=== PATIENT | female | born 1965 | race Caucasian/White ===

== ENCOUNTER 2021-12-12 09:33 | Day surgery (SDC) | payer OTHER ==
[~2021-12-12 09:33] MED LIST: Lactated Ringers 1,000 ML IV SCH; Lidocaine 1%/Sod Bicarbonate in NS 8.4% 1 ML Syringe IDERM PRN; Sodium Chloride 0.9% 10 ML Syringe FLUSH PRN; Sodium Chloride 0.9% 10 ML Syringe FLUSH SCH
[2021-12-12] MEDS ORDERED: Propofol 200 MG/20 ML SDV ONE (11:02)
[2021-12-12] MEDS ORDERED: Lidocaine 1% 6 ML ONE (11:03)
[2021-12-12] MEDS ORDERED: Midazolam 1 MG/ML 2 ML SDV ONE ×2 (11:06→11:07)
[2021-12-12] MEDS ORDERED: fentaNYL 100 MCG/2 ML SDV ONE (11:06)
[2021-12-12] MEDS ORDERED: Ondansetron 4 MG/2 ML SDV ONE (11:29)
[2021-12-12 13:15] VITALS: BP 124/84; PULSE 70
== END 2021-12-12 13:12 | disposition home or self-care (01) ==
LOC: JD.SDS 09:33
PROVIDERS: ATTEND Surgery
DX: D12.3 Benign neoplasm of transverse colon (principal); D12.6 Benign neoplasm of colon, unspecified; K21.00 Gastro-esophageal reflux disease with esophagitis, without bleeding; M81.0 Age-related osteoporosis without current pathological fracture; Z79.899 Other long term (current) drug therapy; Z90.49 Acquired absence of other specified parts of digestive tract; Z98.890 Other specified postprocedural states; Z87.891 Personal history of nicotine dependence
CPT/HCPCS: 43239; 45380; 45381; 45385; J2250; J2405; J2704; J3010; J7120; 00813

== ENCOUNTER 2021-12-26 07:30 | Inpatient (IN) | payer OTHER ==
[2021-12-26] MEDS ORDERED: Bupivacaine 0.5%/EPINEPHrine 1:200,000 50 ML MDV ONE (08:36)
[2021-12-26] MEDS ORDERED: Midazolam 1 MG/ML 2 ML SDV ONE (08:53)
[2021-12-26] MEDS ORDERED: fentaNYL 250 MCG/5 ML SDV ONE (08:54)
[2021-12-26] MEDS ORDERED: Propofol 200 MG/20 ML SDV ONE (08:54)
[2021-12-26] MEDS ORDERED: Rocuronium 50 MG/5 ML Vial ONE ×2 (08:57→09:55)
[2021-12-26] MEDS ORDERED: Lidocaine 1% 6 ML ONE (08:57)
[2021-12-26] MEDS ORDERED: Dexamethasone 4 MG/ML 5 ML MDV ONE ×2 (08:57→11:11)
[2021-12-26] MEDS ORDERED: Ondansetron 4 MG/2 ML SDV ONE (09:40)
[2021-12-26] MEDS ORDERED: Ropivacaine 0.5% 5 MG/ML 30 ML SDV ONE (09:49)
[2021-12-26] MEDS ORDERED: Heparin Sodium 5,000 Units/ML Vial ONE (10:00)
[2021-12-26] MEDS ORDERED: fentaNYL 100 MCG/2 ML SDV ONE (11:18)
[2021-12-26] MEDS ORDERED: HYDROmorphone 0.5 MG/0.5 ML Syringe ONE (11:19)
[2021-12-26] MEDS ORDERED: Sugammadex Sodium 200 MG/2 ML VIAL ONE (11:39)
[2021-12-26] MEDS ORDERED: Morphine 2 MG/ML SYRINGE IVPUSH PRN (12:55)
[2021-12-26] MEDS ORDERED: oxyCODONE 5 MG Tab PO PRN (12:55)
[2021-12-26] MEDS ORDERED: Ondansetron 4 MG in Sodium Chloride 0.9% 50 ML IV PRN (12:57)
[2021-12-26] MEDS ORDERED: Simethicone 80 MG Tab.Chew PO PRN (12:58)
[2021-12-26] MEDS ORDERED: Ondansetron 4 MG/2 ML SDV IVPUSH PRN ×2 (13:06→13:15)
[2021-12-26] MEDS ORDERED: fentaNYL 100 MCG/2 ML SDV IVPUSH PRN (13:06)
[2021-12-26] MEDS ORDERED: HYDROmorphone 0.5 MG/0.5 ML Syringe IVPUSH PRN (13:06)
[2021-12-26] MEDS: Lactated Ringers 1,000 ML IV SCH ×2 (13:55→22:32)
[2021-12-26] MEDS: Sodium Chloride 0.9% 10 ML Syringe FLUSH SCH (14:58)
[2021-12-26] MEDS: Acetaminophen 325 MG Tab PO SCH ×2 (15:38→22:24)
[2021-12-26] MEDS: Heparin Sodium 5,000 Units/ML Vial SUBCUT SCH ×2 (15:39→22:26)
[2021-12-27] MEDS: Acetaminophen 325 MG Tab PO SCH ×3 (06:17→21:54)
[2021-12-27] MEDS: Heparin Sodium 5,000 Units/ML Vial SUBCUT SCH ×3 (06:18→21:54)
[2021-12-27] MEDS: Pantoprazole 40 MG Tab.CR PO SCH (08:20)
[2021-12-28] MEDS: Acetaminophen 325 MG Tab PO SCH ×3 (05:58→22:11)
[2021-12-28] MEDS: Heparin Sodium 5,000 Units/ML Vial SUBCUT SCH ×3 (05:58→22:13)
[2021-12-28] MEDS: Pantoprazole 40 MG Tab.CR PO SCH (08:51)
[2021-12-29] MEDS: Acetaminophen 325 MG Tab PO SCH (05:55)
[2021-12-29] MEDS: Heparin Sodium 5,000 Units/ML Vial SUBCUT SCH (05:57)
[2021-12-29 09:54] VITALS: BP 125/87; PULSE 96
[2021-12-29] MEDS: Pantoprazole 40 MG Tab.CR PO SCH (10:59)
== END 2021-12-29 09:20 | disposition home or self-care (01) | DRG 331 ==
LOC: JD.MS 07:30 → JD.OB 12-27 21:03
PROVIDERS: ADMIT Surgery; ATTEND Surgery
PROC: 0DBL4ZZ Excision of Transverse Colon, Percutaneous Endoscopic Approach (ICD-10-PCS; principal; 2021-12-26)
PROC: 0DBM4ZZ Excision of Descending Colon, Percutaneous Endoscopic Approach (ICD-10-PCS; 2021-12-26)
DX: D12.3 Benign neoplasm of transverse colon (principal); M81.0 Age-related osteoporosis without current pathological fracture; K44.9 Diaphragmatic hernia without obstruction or gangrene; M19.90 Unspecified osteoarthritis, unspecified site; K21.9 Gastro-esophageal reflux disease without esophagitis; K57.30 Diverticulosis of large intestine without perforation or abscess without bleeding; K76.0 Fatty (change of) liver, not elsewhere classified; Z90.49 Acquired absence of other specified parts of digestive tract; Z79.899 Other long term (current) drug therapy
CPT/HCPCS: 00790; 36415; 64488; 80048; 85025; 94761; A9270-GY; J0694; J1100; J1170; J1644; J2250; J2370; J2405; J2704; J2795; J3010; J3490; J7120; U0002

== ENCOUNTER 2022-01-09 09:35 | Inpatient (IN) | payer OTHER ==
[2022-01-09] MEDS ORDERED: Sodium Chloride 0.9% 1,000 ML IV STA (10:08)
[2022-01-09] MEDS ORDERED: Sodium Chloride 0.9% 10 ML Syringe FLUSH PRN ×2 (10:08→10:54)
[2022-01-09] MEDS ORDERED: Iopamidol 612 MG/ML 100 ML Bottle IVPUSH ONE (10:54)
[2022-01-09] MEDS ORDERED: Diatrizoate Meglumine/Diatrizoate Sodium 37% 120 ML Bottle PO ONE (10:54)
[2022-01-09] MEDS ORDERED: Piperacillin/Tazobactam 4.5 GM in Sodium Chloride 0.9% 100 ML IV ONE (12:44)
[2022-01-09] MEDS: Lactated Ringers 1,000 ML IV SCH (13:59)
[2022-01-09] MEDS ORDERED: Ondansetron 4 MG/2 ML SDV IV PRN (17:49)
[2022-01-09] MEDS ORDERED: oxyCODONE 5 MG Tab PO PRN (17:49)
[2022-01-09] MEDS ORDERED: HYDROmorphone 0.5 MG/0.5 ML Syringe IVPUSH PRN (17:49)
[2022-01-09] MEDS ORDERED: Ondansetron 4 MG Tab.DIS PO PRN (17:49)
[2022-01-09] MEDS ORDERED: Acetaminophen 325 MG Tab PO PRN (17:49)
[2022-01-09] MEDS: Piperacillin/Tazobactam 4.5 GM in Sodium Chloride 0.9% 100 ML IV SCH (18:09)
[2022-01-10] MEDS: Piperacillin/Tazobactam 4.5 GM in Sodium Chloride 0.9% 100 ML IV SCH ×3 (03:19→18:11)
[2022-01-10] MEDS: Lactated Ringers 1,000 ML IV SCH (06:26)
[2022-01-10] MEDS ORDERED: Lactated Ringers 1,000 ML IV SCH ×2 (08:45→16:03)
[2022-01-10] MEDS: Enoxaparin 40 MG/0.4 ML Syringe SUBCUT SCH (09:21)
[2022-01-10] MEDS: Potassium Chloride 10 MEQ in Premix Bag 1 BAG IV SCH ×4 (13:40→21:52)
[2022-01-10] MEDS ORDERED: Potassium Chloride 10 MEQ in Premix Bag 1 BAG IV SCH (21:30)
[2022-01-11] MEDS: Piperacillin/Tazobactam 4.5 GM in Sodium Chloride 0.9% 100 ML IV SCH ×2 (02:52→09:55)
[2022-01-11] MEDS: Enoxaparin 40 MG/0.4 ML Syringe SUBCUT SCH (08:34)
[2022-01-11 12:33] VITALS: BP 132/81; PULSE 84
== END 2022-01-11 14:50 | disposition home or self-care (01) | DRG 392 ==
LOC: JD.ED 09:35 → JD.MS 12:52
PROVIDERS: ADMIT Surgery; ATTEND Surgery
DX: K52.9 Noninfective gastroenteritis and colitis, unspecified (principal); K62.89 Other specified diseases of anus and rectum; Z20.822 Contact with and (suspected) exposure to COVID-19; H54.7 Unspecified visual loss; K21.9 Gastro-esophageal reflux disease without esophagitis; M54.9 Dorsalgia, unspecified; G89.29 Other chronic pain; M81.0 Age-related osteoporosis without current pathological fracture; Z90.49 Acquired absence of other specified parts of digestive tract; Z87.891 Personal history of nicotine dependence
CPT/HCPCS: 36415; 74177; 74177-26; 80048; 80053; 81001; 83690; 85025; 86140; 96365; 99284; 99285-25; A9270-GY; J1650; J2543; J3480; J3490; J7030; J7120; Q9963; Q9967; U0002

== ENCOUNTER 2022-01-28 13:04 | Emergency (ER) | payer OTHER ==
[2022-01-28] MEDS ORDERED: Ondansetron 4 MG/2 ML SDV IVPUSH ONE (13:29)
[2022-01-28] MEDS ORDERED: Dextrose 5%-0.9% NaCl 1,000 ML IV SCH (13:30)
[2022-01-28] MEDS ORDERED: Diatrizoate Meglumine/Diatrizoate Sodium 37% 120 ML Bottle PO ONE (13:42)
[2022-01-28] MEDS ORDERED: Iopamidol 612 MG/ML 100 ML Bottle IVPUSH ONE (13:42)
[2022-01-28] MEDS: Sodium Chloride 0.9% 10 ML Syringe FLUSH PRN ×2 (14:20→15:20)
[2022-01-28 16:00] VITALS: BP 129/90; PULSE 82
== END 2022-01-28 16:58 | disposition home or self-care (01) ==
LOC: JD.ED 13:04
DX: K57.32 Diverticulitis of large intestine without perforation or abscess without bleeding (principal); R19.7 Diarrhea, unspecified
CPT/HCPCS: 36415; 74177; 80053; 81001; 83630; 83735; 85025; 85652; 86140; 87324; 87493; 96374; 99284; J2405; J3490; J7042; Q9963; Q9967

== ENCOUNTER 2023-06-16 07:07 | Day surgery (SDC) | payer OTHER ==
[2023-06-16] MEDS ORDERED: Propofol 200 MG/20 ML SDV ONE (07:36)
[2023-06-16] MEDS ORDERED: fentaNYL 100 MCG/2 ML SDV ONE (07:37)
[2023-06-16 08:58] VITALS: BP 116/88; PULSE 82
[2023-06-16] MEDS ORDERED: Sodium Chloride 0.9% 10 ML Syringe FLUSH PRN (11:07)
[2023-06-16] MEDS ORDERED: Lactated Ringers 1,000 ML IV SCH (11:15)
[2023-06-16] MEDS ORDERED: Sodium Chloride 0.9% 10 ML Syringe FLUSH SCH (21:00)
== END 2023-06-16 08:50 | disposition home or self-care (01) ==
LOC: JD.SDS 07:07
PROVIDERS: ATTEND Specialist
DX: G89.29 Other chronic pain (principal); M54.9 Dorsalgia, unspecified; K57.32 Diverticulitis of large intestine without perforation or abscess without bleeding; K21.9 Gastro-esophageal reflux disease without esophagitis; I10 Essential (primary) hypertension; E78.5 Hyperlipidemia, unspecified; Z87.891 Personal history of nicotine dependence; Z79.899 Other long term (current) drug therapy
CPT/HCPCS: G0121; J2704; J3010; J7120; 00811

== ENCOUNTER 2025-03-21 09:02 | Observation (INO) | payer OTHER ==
[~2025-03-21 09:02] MED LIST changes: +HYDROmorphone 0.5 MG/0.5 ML Syringe ONE; -Lactated Ringers 1,000 ML IV SCH; -Lidocaine 1%/Sod Bicarbonate in NS 8.4% 1 ML Syringe IDERM PRN; +Lidocaine 2% 5 ML SDV ONE; +Propofol 200 MG/20 ML SDV ONE; +Rocuronium 50 MG/5 ML Vial ONE; -Sodium Chloride 0.9% 10 ML Syringe FLUSH SCH
[2025-03-21] MEDS ORDERED: fentaNYL 250 MCG/5 ML SDV ONE (09:03)
[2025-03-21] MEDS ORDERED: Ondansetron 4 MG/2 ML SDV ONE (09:09)
[2025-03-21] MEDS ORDERED: Dexamethasone 4 MG/ML 5 ML MDV ONE (09:09)
[2025-03-21] MEDS: Lactated Ringers 1,000 ML IV SCH ×2 (09:10→21:54)
[2025-03-21] MEDS: Citric Acid/Sodium Citrate Solution 30 ML Cup PO ONE (09:44)
[2025-03-21] MEDS ORDERED: Famotidine 20 MG/2 ML SDV ONE (09:48)
[2025-03-21] MEDS: Famotidine 20 MG/2 ML SDV IVPUSH ONE (09:48)
[2025-03-21] MEDS: EPINEPHrine 1 MG/ML SDV ONE (10:55)
[2025-03-21] MEDS: Bupivacaine 0.5% 30 ML SDV ONE (10:55)
[2025-03-21] MEDS ORDERED: ceFAZolin 2 GM Vial ONE (11:07)
[2025-03-21] MEDS ORDERED: Phenylephrine 1% 10 MG/ML SDV ONE (11:07)
[2025-03-21] MEDS ORDERED: Rocuronium 50 MG/5 ML Vial ONE (11:08)
[2025-03-21] MEDS ORDERED: Lactated Ringers 1,000 ML ONE (11:22)
[2025-03-21] MEDS ORDERED: Sugammadex Sodium 200 MG/2 ML VIAL IV ONE (11:40)
[2025-03-21] MEDS ORDERED: oxyCODONE 5 MG Tab PO PRN (12:52)
[2025-03-21] MEDS ORDERED: HYDROmorphone 0.5 MG/0.5 ML Syringe IVPUSH PRN ×2 (12:52→13:39)
[2025-03-21] MEDS ORDERED: Benzocaine/Cetylpyridinium/Menthol Lozenge MUCMEM PRN (12:56)
[2025-03-21] MEDS ORDERED: fentaNYL 100 MCG/2 ML SDV IVPUSH PRN (13:39)
[2025-03-21] MEDS ORDERED: Ondansetron 4 MG/2 ML SDV IVPUSH PRN (13:39)
[2025-03-21] MEDS: Sodium Chloride 0.9% 10 ML Syringe FLUSH SCH (14:44)
[2025-03-21] MEDS: Ketorolac 30 MG/ML SDV IVPUSH ONE (15:58)
[2025-03-21] MEDS: Simethicone 80 MG Tab.Chew PO PRN (17:40)
[2025-03-21] MEDS: Ondansetron 4 MG/2 ML SDV IV PRN (17:40)
[2025-03-21] MEDS: Acetaminophen 325 MG Tab PO PRN (19:45)
[2025-03-21] MEDS: Promethazine 25 MG Tab PO PRN (19:45)
[2025-03-21] MEDS: Ondansetron 4 MG/2 ML SDV IVPUSH ONE (20:11)
[2025-03-21] MEDS ORDERED: diphenhydrAMINE 50 MG/ML SDV IVPUSH PRN (21:00)
[2025-03-22 04:09] LABS: BASOPHILS PERCENT AUTO 0.1 % (0.0-1.0); EOSINOPHILS PERCENT AUTO 0.1 % (0.0-6.0); HEMOGLOBIN 14.2 gm/dl (12.0-16.0); IMMATURE GRAN ABSOLUTE AUTO 0.04 K/mm3 (0.00-0.05); IMMATURE GRAN PERCENT AUTO 0.3 % (0.0-0.4); LYMPHOCYTES ABSOLUTE AUTO 0.8 K/mm3 (1.0-4.8); LYMPHOCYTES PERCENT AUTO 7.2 % (24.0-44.0); MEAN CORPUSCULAR HEMOGLOBIN 29.1 pg (28.0-32.0); MEAN CORPUSCULAR HGB CONC 33.8 g/dl (32.0-36.0); MEAN CORPUSCULAR VOLUME 86.1 fl (83.0-99.0); MEAN PLATELET VOLUME 9.6 fl (9.4-12.3); MONOCYTES ABSOLUTE AUTO 0.8 K/mm3 (0.0-0.8); MONOCYTES PERCENT AUTO 6.9 % (0.0-8.0); NEUTROPHILS PERCENT AUTO 85.4 % (41.0-71.0); PLATELET COUNT,PLT 264 K/mm3 (150-400); RED BLOOD CELL COUNT 4.88 M/mm3 (4.10-5.30); WHITE BLOOD CELL COUNT,WBC 11.67 K/mm3 (3.9-11.3)
[2025-03-22 04:23] LABS: BUN/CREATININE RATIO 13.8 (14-18); CALCIUM 8.7 mg/dL (8.5-10.1); CREATININE 0.8 mg/dL (0.55-1.02); EST CRCL DRUG DOSING (CG) 58.41 mL/min
[2025-03-22] MEDS: Calcium Carbonate 500 MG Tab.Chew PO PRN (08:10)
[2025-03-22 08:48] VITALS: BP 146/92
[2025-03-22] MEDS: Ondansetron 4 MG/2 ML SDV IVPUSH PRN (08:55)
[2025-03-22 10:53] VITALS: PULSE 96
== END 2025-03-22 10:50 | disposition home or self-care (01) ==
LOC: INTOOBSV 09:02 → JD.MS 09:02
PROVIDERS: ADMIT Surgery; ATTEND Surgery
DX: K44.9 Diaphragmatic hernia without obstruction or gangrene (principal); K21.9 Gastro-esophageal reflux disease without esophagitis; K22.2 Esophageal obstruction; Z87.891 Personal history of nicotine dependence; Z79.899 Other long term (current) drug therapy
CPT/HCPCS: 36415; 43235; 43280; 80048; 85025; 94761; A9270; C1781; J0171; J0665; J0690; J1100; J1885; J2003; J2371; J2405; J2704; J3010; J7120; 00750; J3490; Q0169